=== PATIENT | male | born 1990 | race Asian ===

== ENCOUNTER 2018-02-23 15:12 | Emergency (ER) | END 2018-02-23 16:53 | disposition home or self-care (01) ==

== ENCOUNTER 2018-04-30 15:17 | Emergency (ER) | payer SELFPAY ==
[~2018-04-30] VITALS: Ht 172.7 cm; Wt 75.5 kg
[~2018-04-30 15:17] MED LIST: IBUP-1542 PO; NPH10OT RIGHT EAR
[2018-04-30 15:44] VITALS: Ht 172.7 cm; Wt 75.5 kg
[2018-04-30] MEDS ORDERED: KETOROLAC 60 MG INJ IM STA (17:10)
--- NOTE | 2018-04-30 17:16 | ERD ---
ER Documentation Chief Complaint Chief Complaint Complains of a swelling/abscess to right hand and forearm HPI 27-year-old male presents with history of mass to his right forearm to the past 2 days. States that it is tender to palpation. Not taking any treatments. States that the pain is intermittent. Denies any fevers, chills. Denies past medical history. Denies allergies. Denies medications. Denies surgeries. Denies alcohol, tobacco, drug use. Up to date on vaccines. ROS All systems reviewed and are negative except as per history of present illness. Medications Home Meds Active Scripts Sulfamethoxazole/Trimethoprim* (Bactrim Ds* Tablet) 1 Each Tablet, 1 TAB PO BID for abscess for 7 Days, #14 TAB Prov:SILVER CEDILLO 04/30/18 Cephalexin* (Keflex*) 500 Mg Capsule, 500 MG PO QID for abscess for 7 Days, CAP Prov:SILVER CEDILLO 04/30/18 Hydrocodone/Acetaminophen (Linch 5-325 Tablet) 1 Each Tablet, 1 TAB PO Q6H PRN for PAIN, #7 TAB Prov:SILVER CEDILLO 04/30/18 Ibuprofen* (Motrin*) 600 Mg Tab, 600 MG PO Q6H PRN for PAIN AND OR ELEVATED TEMP, #30 TAB Prov:JESSICA GODINZE PA-C 02/23/18 Neomycin/Polymyxin/Hydrocort* (Cortisporin* Otic) 10 Ml Susp, 4 DROP RIGHT EAR QID for 7 Days, EA Prov:FESTUS FISHER PA-C 10/19/15 Allergies Allergies: Coded Allergies: No Known Allergy (Unverified , 02/23/18) PMhx/Soc Medical and Surgical Hx: pt denies Medical Hx, pt denies Surgical Hx Hx Alcohol Use: No Hx Substance Use: No Hx Tobacco Use: No FmHx Family History: No diabetes, No coronary disease, No other Physical Exam Vitals Vital Signs Date Temp Pulse Resp B/P (MAP) Pulse Ox O2 O2 Flow FiO2 Time Delivery Rate 04/30/18 97.8 77 18 130/74 97 Room Air 18:41 (92) 04/30/18 99.1 81 20 145/89 100 15:44 (107) Physical Exam Const: No acute distress Head: Atraumatic Eyes: Normal Conjunctiva ENT: Normal External Ears, Nose and Mouth. Neck: Full range of motion. No meningismus. Resp: Clear to auscultation bilaterally Cardio: Regular rate and rhythm, no murmurs Skin: Approximately 3 cm mass noted over dorsal aspect of left forearm. Mass erythematous and tender to palpation with some moderate fluctuance. No lymphatic streaking or drainage noted. Neur: Awake and alert Psych: Normal Mood and Affect Results 24 hrs Current Medications Medications Dose Sig/Samira Start Time Status Last (Trade) Ordered Route PRN Stop Time Admin Dose Reason Admin 1 tab ONCE ONCE 04/30/18 DC 04/30/18 Acetaminophen PO 17:30 04/30/18 17:19 / 17:31 Hydrocodone Bitart (Linch (5/325)) Ketorolac 60 mg ONCE STAT 04/30/18 DC 04/30/18 Tromethamine IM 17:10 04/30/18 17:19 (Toradol) 17:12 Lidocaine 1 applic ONCE ONCE 04/30/18 DC (Lmx 4% Plus) TOP 17:30 04/30/18 17:31 Lidocaine 20 ml ONCE ONCE 04/30/18 DC (Xylocaine SC 17:30 04/30/18 1% (Mdv) 20 17:31 ml) Procedures/MDM Abscess Incision and Drainage with irrigation by me: Location: Right forearm. Anesthesia: Local 1% Lidocaine Technique: Irrigated. Disrupted loculations w/ instrumentation Packing: None Complications: Neurovascularly intact post procedure 48 hour wound check. Scar minimization instructions given. 27-year-old male presents with history of mass to his right forearm to the past 2 days. States that it is tender to palpation. Not taking any treatments. States that the pain is intermittent. Denies any fevers, chills. Abscess was successfully drained using technique above. Patient given instructions to return in 2 days. In addition patient given Rx for Keflex and Bactrim. Low suspicion for sepsis, fistula, neurovascular compromise. Patient discharged with strict ER precautions. Patient advised to follow up with PMD. All questions answered at discharge. Departure Diagnosis: Primary Impression: Abscess Condition: Stable SILVER CEDILLO Apr 30, 2018 17:16
[2018-04-30] MEDS ORDERED: CEPH-443 PO (17:18)
[2018-04-30] MEDS ORDERED: SULF1TAB31 PO (17:18)
[2018-04-30] MEDS ORDERED: HYDR-4011 PO (17:18)
[2018-04-30] MEDS ORDERED: LIDOCAINE 4% CR TOP ONE (17:30)
[2018-04-30] MEDS ORDERED: HYDROCODONE/APAP (5/325) TAB PO ONE (17:30)
[2018-04-30] MEDS ORDERED: LIDOCAINE 1% (MDV) 20 ML INJ SC ONE (17:30)
[2018-04-30 18:41] VITALS: BP 130/74; PULSE 77; RESP 18
== END 2018-04-30 18:43 | disposition home or self-care (01) ==
LOC: FTE 15:17
DX: L02.413 Cutaneous abscess of right upper limb (principal)
CPT/HCPCS: 10060; 96372; 99284; J1885

== ENCOUNTER 2018-05-03 12:36 | Emergency (ER) | payer SELFPAY ==
[~2018-05-03] VITALS: Ht 167.6 cm; Wt 77.0 kg
[~2018-05-03 12:36] MED LIST changes: +CEPH-443 PO; +HYDR-4011 PO; +SULF1TAB31 PO
[2018-05-03 12:42] VITALS: BP 133/74; PULSE 71; RESP 20; Ht 167.6 cm; Wt 77.0 kg
[2018-05-03] MEDS ORDERED: MUPI22OI2 TOP (16:35)
--- NOTE | 2018-05-03 16:38 | ERD ---
ER Documentation Chief Complaint Chief Complaint Patient here for a recheck, wound check HPI 27-year-old male presents for recheck of his I&D that was done a couple days ago. Patient denies any fevers or chills. He is on antibiotics currently. He states that the wound is getting better. ROS All systems reviewed and are negative except as per history of present illness. Medications Home Meds Active Scripts Mupirocin* (Bactroban*) 2% -22 Gram Oint...g., 1 APPLIC TOP BID for 7 Days, #1 TUBE Prov:JUAN RAMON BERRIOS DO 05/03/18 Sulfamethoxazole/Trimethoprim* (Bactrim Ds* Tablet) 1 Each Tablet, 1 TAB PO BID for abscess for 7 Days, #14 TAB Prov:SILVER CEDILLO 04/30/18 Cephalexin* (Keflex*) 500 Mg Capsule, 500 MG PO QID for abscess for 7 Days, CAP Prov:SILVER CEDILLO 04/30/18 Hydrocodone/Acetaminophen ([place] 5-325 Tablet) 1 Each Tablet, 1 TAB PO Q6H PRN for PAIN, #7 TAB Prov:SILVER CEDILLO 04/30/18 Ibuprofen* (Motrin*) 600 Mg Tab, 600 MG PO Q6H PRN for PAIN AND OR ELEVATED TEMP, #30 TAB Prov:JESSICA GODINEZ PA-C 02/23/18 Neomycin/Polymyxin/Hydrocort* (Cortisporin* Otic) 10 Ml Susp, 4 DROP RIGHT EAR QID for 7 Days, EA Prov:FESTUS FISHER PA-C 10/19/15 Allergies Allergies: Coded Allergies: No Known Allergy (Unverified , 02/23/18) PMhx/Soc Medical and Surgical Hx: pt denies Medical Hx, pt denies Surgical Hx Hx Alcohol Use: No Hx Substance Use: No Hx Tobacco Use: No Physical Exam Vitals Vital Signs Date Temp Pulse Resp B/P (MAP) Pulse Ox O2 O2 Flow FiO2 Time Delivery Rate 05/03/18 98.0 71 20 133/74 99 12:42 (93) Physical Exam Const: No acute distress Resp: Clear to auscultation bilaterally Cardio: Regular rate and rhythm, no murmurs Skin: Right forearm incision and drainage area clean dry and intact. No acti ve discharge Ext: No cyanosis, or edema Neur: Awake and alert Psych: Normal Mood and Affect Procedures/MDM Medical Decision Making: Patient presented for recheck of his incision and drainage site. Patient appeared well on physical exam. Incision and drainage area appears to be clean, dry intact. No signs of infection noted Prescription(s): Patient given prescription for Bactroban. Advised to continue with oral antibiotics Patient advised to follow up with PCP in 1-2 days. Patient advised to return to ED for new or worsening symptoms. Patient stable on discharge from the ED. Disclaimer: Inadvertent spelling and grammatical errors are likely due to EHR/dictation software use and do not reflect on the overall quality of patient care. Also, please note that the electronic time recorded on this note does not necessarily reflect the actual time of the patient encounter. Departure Diagnosis: Primary Impression: Encounter for wound re-check Condition: Fair Patient Instructions: Wound Care Referrals: [facility] YOU HAVE RECEIVED A MEDICAL SCREENING EXAM AND THE RESULTS INDICATE THAT YOU DO NOT HAVE A CONDITION THAT REQUIRES URGENT TREATMENT IN THE EMERGENCY DEPARTMENT. FURTHER EVALUATION AND TREATMENT OF YOUR CONDITION CAN WAIT UNTIL YOU ARE SEEN IN YOUR DOCTORS OFFICE WITHIN THE NEXT 1-2 DAYS. IT IS YOUR RESPONSIBILITY TO MAKE AN APPOINTMENT FOR FOLOW-UP CARE. IF YOU HAVE A PRIMARY DOCTOR --you should call your primary doctor and schedule an appointment IF YOU DO NOT HAVE A PRIMARY DOCTOR YOU CAN CALL OUR PHYSICIAN REFERRAL HOTLINE AT IF YOU CAN NOT AFFORD TO SEE A PHYSICIAN YOU CAN CHOSE FROM THE FOLLOWING [facility] [address] [facility]. [facility] [address] [facility] [address] [facility] [facility] [address] [facility] [facility] [address] [facility]. [facility] [address] Additional Instructions: Call your primary care doctor TOMORROW for an appointment during the next 1-2 days.See the doctor sooner or return here if your condition worsens before your appointment time. JUAN RAMON BERRIOS DO May 03, 2018 16:38
== END 2018-05-03 16:45 | disposition home or self-care (01) ==
LOC: FTE 12:36
DX: Z48.01 Encounter for change or removal of surgical wound dressing (principal)
CPT/HCPCS: 99283